=== PATIENT | male | born 1975 | race Caucasian/White ===

== ENCOUNTER → 2023-01-16 14:34 | Outpatient (BNVA) | payer MEDICARE, MEDICAID, SELFPAY | PROVIDERS: PCP Internal Medicine; Visit Provider Physician Assistant | DX: Z12.11 Encounter for screening for malignant neoplasm of colon (principal); K21.9 Gastro-esophageal reflux disease without esophagitis | CPT/HCPCS: 99202 ==

== ENCOUNTER 2023-05-21 08:24 | Day surgery (SDC) | payer MEDICARE, MEDICAID, SELFPAY ==
[2023-05-19 14:16] VITALS: BMI 27.9
--- NOTE | 2023-05-20 09:52 | HO.ANESPROP2 ---
Documented by User: Abbie Frankel NP 05/20/23 09:52 HPI - Anesthesia Eval Consult details Narrative: 47yo M for Upper Endoscopy and Colonoscopy PMFSH Active Problems Active Problems: All Active Problems (Updated 05/19/23 @ 14:17 by Belgica Souza RN) Dysautonomia (Acute) Encounter for screening colonoscopy (Acute) Acid reflux (Acute) Past Medical History Medical History GERD (gastroesophageal reflux disease) Family History Family History Father Lung cancer Mother Breast cancer Surgical History Surgical History Hx laparoscopic cholecystectomy Hx of vasectomy Hx of hernia repair Social History Social History Household Members: Spouse and Children Alcohol intake: current Alcohol intake frequency: holidays/special occasions only Patient Tobacco Use Status: Never used Tobacco Substance Use Type: Marijuana Meds Allergies Allergy/AdvReac Type Severity Reaction Status Date / Time No Known Allergies Allergy Unverified 01/16/23 14:39 Home Medications Medication Instructions Recorded Confirmed Last Taken Type duloxetine 60 mg capsule,delayed 120 mg PO DAILY 01/16/23 01/16/23 Unknown History release lorazepam 1 mg tablet 1 mg PO TID 01/16/23 01/16/23 Unknown History omeprazole 40 mg capsule,delayed 40 mg PO BID 01/16/23 01/16/23 05/21/23 06:30 History release ondansetron HCl 8 mg tablet 8 mg PO TID PRN nausea 01/16/23 01/16/23 Unknown History sildenafil 50 mg tablet 50 mg PO DAILY 01/16/23 01/16/23 Unknown History Exam Exam Date and Time: May 20, 2023 0952 Height,Weight and Vital Signs: Height 6 ft 3 in Weight 101.151 kg Assessment and Plan Assessment Anesthesia Assessment: Chart Reviewed Documented by User: Nakita To MD 05/21/23 10:24 [facility] Active Problems Active Problems: All Active Problems (Updated 05/19/23 @ 14:17 by Belgica Souza RN) Dysautonomia (Acute) Encounter for screening colonoscopy (Acute) Acid reflux (Acute) ANGELITO. Uses mouth device and pillow Past Medical History Medical History GERD (gastroesophageal reflux disease) Family History Family History Father Lung cancer Mother Breast cancer Family history of problems with anesthesia: No Surgical History Surgical History Hx laparoscopic cholecystectomy Hx of vasectomy Hx of hernia repair History of Problems with Anesthesia: No Social History Social History Household Members: Spouse and Children Alcohol intake: current Alcohol intake frequency: holidays/special occasions only Patient Tobacco Use Status: Never used Tobacco Substance Use Type: Marijuana Meds Allergies Allergy/AdvReac Type Severity Reaction Status Date / Time No Known Allergies Allergy Unverified 01/16/23 14:39 Home Medications Medication Instructions Recorded Confirmed Last Taken Type duloxetine 60 mg capsule,delayed 120 mg PO DAILY 01/16/23 01/16/23 Unknown History release lorazepam 1 mg tablet 1 mg PO TID 01/16/23 01/16/23 Unknown History omeprazole 40 mg capsule,delayed 40 mg PO BID 01/16/23 01/16/23 05/21/23 06:30 History release ondansetron HCl 8 mg tablet 8 mg PO TID PRN nausea 01/16/23 01/16/23 Unknown History sildenafil 50 mg tablet 50 mg PO DAILY 01/16/23 01/16/23 Unknown History Exam Height,Weight and Vital Signs: Height 6 ft 3 in Weight 101.151 kg Vital Signs Temp Pulse Resp BP Pulse Ox O2 Del Method 97.6 F 68 16 116/77 98 Room Air 05/21/23 09:01 05/21/23 09:01 05/21/23 09:01 05/21/23 09:01 05/21/23 09:01 05/21/23 09:01 Airway Mallampati Class: III TM Dist: >3cm Neck ROM: Full Loose/Missing/Broken Teeth: No (Denies broken, loose, missing teeth) Heart: RRR Lungs: CTAB Assessment and Plan Assessment Anesthesia Assessment: Anesthesia Plan Discussed Final Anesthetic Review Family History of Problems with Anesthesia: No History of Problems with Anesthesia: No NPO: Yes ASA Class: III Final Preanesthetic Review: No Changes in Pt Med Stat, Meds/Allgs Chart Reviewed, Consent Obtained/Reviewed and Anes Risks/Benef Reviewed Patient Risk: Intermediate Procedure Risk: Low Assessment/Block/Sedation in SS: Assess/Block/Sedation-SS Anesthetic Plan Anesthetic Plan: MAC: Disposition: Standard PACU
[2023-05-21 08:45] VITALS: BMI 26.5
[2023-05-21 09:01] VITALS: BP 116/77; PULSE 68; RESP 16; TEMP 36.4; O2SAT 98
[2023-05-21] MEDS: Lactated Ringers 1,000 ML 100 ML IVCONT (09:12)
--- NOTE | 2023-05-21 09:29 | MHC.SHP ---
Pre-Procedural Eval Section A Date of Service: 05/21/23 Section B Chief Complaint: reflux disease,screening Relevant Family History (Specify if Yes): No Relevant Social History: Other (specify) Present Medications: see Short Stay Collaborative assessment Medical History: Significant History (gerd, dysautonomia) History of Previous Operations: Relevant previous surgery/procedure and date(s) (Hx laparoscopic cholecystectomy Hx of hernia repair Hx of vasectomy) Allergies: Allergies Allergy/AdvReac Type Severity Reaction Status Date / Time No Known Allergies Allergy Unverified 01/16/23 14:39 Review of Systems Sugical H&P ROS: Negative: Constitution, Cardiovascular, Respiratory, Neurological, Psychiatric, Hem-Onc, Allergic/Immunologic, Gastrointestinal, Genitourinary, Musculoskeletal, Integumentary, Endocrine and Eyes/Ears/Nose/Throat Exam Surgical H&P Exam: Normal: HEENT, Normal: Heart, Normal: Lungs, Normal: Extremities, Normal: Abdomen, Normal: Skin and Normal: Neurological Plan Diagnosis/Plan: Unchanged I have reviewed the history and physical and performed a pertinent physical examination on my patient. No changes have occurred unless specified. Time Spent With Patient Time: Total time managing care of this patient today ____ minutes.
--- NOTE | 2023-05-21 09:31 | W.PM.OPN ---
Operative Note Operative Note Date of Service: 05/21/23 Narrative: Operative Information Procedure Description: EGD, Colonoscopy Indication: GERD, screening Anesthesia: MAC FLEXIBLE TRANSORAL UPPER GASTROINTESTINAL ENDOSCOPY AND COLONOSCOPY PROCEDURE NOTE UPPER ENDOSCOPY Consent: Indications for the procedure and potential complications of bleeding, perforation, reaction to medications and missed diagnosis were discussed with the patient and informed consent was obtained. Instrument: Olympus GIF H 190 J mid size upper endoscope Monitoring: Vital signs and clinical assessment, continuous EKG monitoring, Pulse oximetry, Carbon Dioxide monitoring and blood pressure monitoring were done throughout the procedure. Procedure: The patient was placed in the left lateral decubitis position and pre-procedure medications were administered and a bite block was placed. The endoscope was inserted into the mouth and advanced under direct vision to the third part of duodenum. A careful inspection was made as the upper endoscope was withdrawn including a retroflexed examination of the proximal stomach; Findings and interventions are described below. Findings: Larynx:normal Esophagus: GE junction at 40 cm, diaphragm hiatus at 40 cm, few short tongues of salmon pink tissue suspicious for barretts, bx taken, also from distal and proximal esophagus Stomach: Patchy erythema. Biopsies were obtained. Grade 2 flap valve on retroflexed examination of the cardia.Reduced gastric movement noted. Duodenum: Normal bulb and descending duodenum, bx taken Intervention: Biopsies as noted above COLONOSCOPY Instrument: Olympus variable stiffness pediatric scope 190L Colonoscopy Monitoring: Vital signs and clinical assessment, continuous EKG monitoring, Pulse oximetry, Carbon Dioxide monitoring and blood pressure monitoring were done throughout the procedure. Colon withdrawal time was 12 minutes. Procedure: The patient was placed in the left lateral decubitis position and pre-procedure medications were administered. After a digital rectal examination of the ano-rectum, the video colonoscope was inserted into the rectum and advanced through the colon to the cecum/TI. The colonoscope was slowly withdrawn in a retrograde panoramic fashion and the colon mucosa was carefully examined including a retroflexed view of the rectum. Findings and interventions are described below. Procedure Difficulty:easy Findings: Terminal Ileum-normal Cecum:normal Ascending Colon: normal Transverse Colon -normal Descending Colon:normal Sigmoid Colon: few small diverticula seen Rectum: Retroflexion with small internal hemorrhoids, grade I Reduced colonic motility noted Anorectum - normal Colon preparation: [place] Bowel Preparation Scale Right colon; 2 Transverse colon: 2 Left colon; 2 (0 = Unprepared colon segment with mucosa not seen due to solid stool that cannot be cleared. 1 = Portion of mucosa of the colon segment seen, but other areas of the colon segment not well seen due to staining, residual stool and/or opaque liquid. 2 = Minor amount of residual staining, small fragments of stool and/or opaque liquid, but mucosa of colon segment seen well. 3 = Entire mucosa of colon segment seen well with no residual staining, small fragments of stool or opaque liquid) Impression and Post Procedure Diagnosis: Endoscopy Findings: gastritis possible barretts possible gastroparesis Colonoscopy Findings: internal hemorrhoids midl diverticulosis Plan: Await Pathology results Repeat Colonoscopy in 10 years or earlier if clinically indicated High fiber diet leaflet avoid straining at stool, epsom salts and sitz bath, anusol supps or cream consider GES and sitz marker study if ongoing sx Above findings were reviewed with the patient and relevant handouts were provided if indicated.
[2023-05-21 10:16] VITALS: BP 104/71; PULSE 76; RESP 16; TEMP 36.9; O2SAT 94
[2023-05-21 10:31] VITALS: BP 123/82; PULSE 74; RESP 16; TEMP 36.3; O2SAT 98
== END 2023-05-21 11:03 | disposition home or self-care (01) ==
PROVIDERS: PCP Internal Medicine; Visit Provider Internal Medicine Gastroenterology
PROC: (CPT 43239; principal; 2023-05-21 10:00)
DX: Z12.11 Encounter for screening for malignant neoplasm of colon (principal); K57.30 Diverticulosis of large intestine without perforation or abscess without bleeding; K64.0 First degree hemorrhoids; K21.9 Gastro-esophageal reflux disease without esophagitis; G90.1 Familial dysautonomia [Riley-Day]; K29.50 Unspecified chronic gastritis without bleeding; K44.9 Diaphragmatic hernia without obstruction or gangrene; Z90.49 Acquired absence of other specified parts of digestive tract; Z98.52 Vasectomy status; Z79.899 Other long term (current) drug therapy
CPT/HCPCS: 43239; G0121; 88305; 88342

== ENCOUNTER → 2023-05-21 08:24 | Outpatient (BNV) | payer MEDICARE, MEDICAID, SELFPAY | PROVIDERS: PCP Internal Medicine; Visit Provider Internal Medicine Gastroenterology | DX: Z12.11 Encounter for screening for malignant neoplasm of colon (principal); K21.9 Gastro-esophageal reflux disease without esophagitis; K29.70 Gastritis, unspecified, without bleeding; K64.0 First degree hemorrhoids; K57.30 Diverticulosis of large intestine without perforation or abscess without bleeding | CPT/HCPCS: 43239; G0121 ==

== ENCOUNTER 2023-06-04 12:22 | Outpatient (AMB) | payer OTHER, SELFPAY ==
--- NOTE | 2023-06-04 12:26 | MHC.OFFVIS ---
Intake Vital Signs 06/04/23 12:27 Height 6 ft 3 in Weight 215 lb BMI 26.9 BP 112/63 Blood Pressure Location Lt brachial Position Sitting Pulse 74 Intake Visit Reasons: s/p egd/colon- Shen Intake Note: Patient follow up acid reflex, for EGD/Colonoscopy results. Patient denies any GI issues. [employer] Consultant Required: No Accompanied by: Self / Same As Patient Allergies No Known Allergies Allergy (Verified 06/04/23 12:25) Medication List - Last Reconciled 06/04/23 by Yoanna Sosa PA-C duloxetine 120 mg PO DAILY lorazepam 1 mg PO TID omeprazole 40 mg PO BID ondansetron HCl 8 mg PO TID PRN sildenafil 50 mg PO DAILY HPI HPI Comments History of Present Illness Details A 47 y/o after EGD/ index screen colon-he had presented with persistent acid reflux PPI for many years. He continues to have acid reflux he had been taking omeprazole 40 mg b.i.d. for years. He does have intermittent breakthrough Appetite good His bowels are not fluctuate between constipation diarrhea he does drink smoothies using fiber-not consist Reviewed procedure report, pathology and recommendation No nausea, vomiting, hematemesis, hematochezia fever chills is present [facility] Medical History (Updated 06/04/23 @ 13:53 by Yoanna Sosa PA-C) GERD (gastroesophageal reflux disease) Surgical History Hx of colonoscopy History of esophagogastroduodenoscopy (EGD) Hx laparoscopic cholecystectomy Hx of vasectomy Hx of hernia repair Family History Father Lung cancer Mother Breast cancer Social History Household Members: Spouse and Children Alcohol intake: current Alcohol intake frequency: holidays/special occasions only Patient Tobacco Use Status: Never used Tobacco Substance Use Type: Marijuana Review of Systems Const All systems reviewed & are unremarkable except as noted in HPI and below GI Denies abdominal pain, Reports constipation, Denies early satiety, Reports heartburn and Reports loose stools Physical Exam Vital Signs: Last Vital Signs Pulse 74 06/04/23 12:27 BP 112/63 06/04/23 12:27 BMI result Body Mass Index 26.9 Const General: cooperative, healthy appearing, comfortable and no acute distress Orientation/consciousness: patient oriented x3 Limitations: no limitations Neuro General: patient oriented x3 Psych Appearance: grossly normal and well kempt Mental Status: mental status grossly normal Speech and movement: Normal speech and movement present and Clear speech present Affect: normal affect Attitude: cooperative Thought process: Normal thought process present Thought content: Normal thought content present Insight: Good insight present (Psych) Judgement: Good judgement present (Psych) Results Reviewed Results Reviewed: Name: Joaquin Haynes Age/Sex: 47/M Attending: Jarett Shen MD : 1975 Submitted by: Jarett Shen MD Copies to: TEO SCHRADER MD MR #: [id number] Status: [facility] Collected: 05/21/23 Location: [facility] Received: 05/21/23 Diagnosis A. Duodenum, biopsy: Duodenal mucosa with preserved villi and no specific change. B. Stomach, biopsy: Predominantly gastric body mucosa with congestion and focal minimal chronic inactive inflammation; negative for H pylori, intestinal metaplasia and dysplasia. C. Gastroesophageal junction, biopsy: Squamous mucosa with hyperplasia and intraepithelial eosinophils (up to 23 per high-power field) compatible with reflux esophagitis, and columnar mucosa with mild chronic inflammation; negative for intestinal metaplasia and dysplasia. D. Esophagus, distal, biopsy: Squamous mucosa with mild hyperplasia, otherwise no specific change; no columnar mucosa present. E. Esophagus, proximal, biopsy: Squamous mucosa with no specific change; no columnar mucosa present. Clinical History Pre-Op Dx: Reflux disease, colon cancer screening Post-Op Dx: Gastritis, possible Morfin's esophagus, possible gastroparesis, mild diverticulosis, internal hemorrhoids, possible colonic dysmotility Microscopic Description Microscopic sections reviewed. Immunostain for H. pylori on B is negative with appropriate control. Material Received A. Duodenum bx's B. Stomach bx's C. GE junction bx's, r/o Morfin's esophagus D. Distal esophagus bx's E. Proximal esophagus bx's Gross Description Received in 5 parts. Part A: Received in formalin labeled ?duodenum bx's? are 3 glistening, semitranslucent, soft, page-pink irregular tissue fragments ranging from 0.2-0.3 cm in greatest dimension which are submitted in toto in a single cassette labeled A. Patient: Joaquin Haynes Age/Sex: 47/M MR#: [id number] Page 1 of 2 Endoscopy Findings: gastritis possible barretts possible gastroparesis Colonoscopy Findings: internal hemorrhoids midl diverticulosis Plan: Await Pathology results Repeat Colonoscopy in 10 years or earlier if clinically indicated High fiber diet leaflet avoid straining at stool, epsom salts and sitz bath, anusol supps or cream consider GES and sitz marker study if ongoing sx Assessment & Plan Assessment & Plan (1) Acid reflux: Comment: Switched to pantoprazole 40 mg daily Code(s): K21.9 - Gastro-esophageal reflux disease without esophagitis Plan: PPI consistent (2) Diverticulosis of colon: Code(s): K57.30 - Diverticulosis of large intestine without perforation or abscess without bleeding Plan: maintain high-fiber diet Medications: New pantoprazole 40 mg PO DAILY 30 days PRN 30 tabs 6RF acid reflux Patient Instructions: Very pleasant 47-year-old Gent persistent acid reflux follows up after recent EGD in screening colonoscopy. Reviewed procedure report, pathology and recommendations Repeat asymptomatic 10 year colon Maintain high-fiber diet, literature given pantoprazole ' 40 mg daily, reviewed reflux precautions He will call progress in about 2 weeks In encouraged to call with any concerns Coding Level of Care Code Est Pt Level 3 (71978) Diagnoses Acid reflux K21.9 Diverticulosis of colon K57.30 Time Spent (min) 30
[2023-06-04 12:27] VITALS: BP 112/63; PULSE 74; BMI 26.9
== END 2023-06-04 13:11 | disposition home or self-care (01) ==
PROVIDERS: PCP Internal Medicine; Visit Provider Physician Assistant
DX: K21.9 Gastro-esophageal reflux disease without esophagitis (principal); K57.30 Diverticulosis of large intestine without perforation or abscess without bleeding
CPT/HCPCS: 99213

== ENCOUNTER → 2023-06-04 12:22 | Outpatient (BNVA) | payer OTHER, SELFPAY | PROVIDERS: PCP Internal Medicine; Visit Provider Physician Assistant | DX: K21.9 Gastro-esophageal reflux disease without esophagitis (principal); K57.30 Diverticulosis of large intestine without perforation or abscess without bleeding | CPT/HCPCS: 99212 ==

== ENCOUNTER 2025-03-01 12:59 | Outpatient (AMB) | payer MEDICARE, MEDICAID, SELFPAY ==
--- NOTE | 2025-03-01 13:06 | MHC.OFFVIS ---
Vital Signs 03/01/25 13:07 Height 6 ft 3 in Intake Visit Reasons: 5M DYSAUTONMIA Allergies No Known Allergies Allergy (Verified 03/01/25 13:15) Medication List - Last Reconciled 03/01/25 by Anju Alonso CNP duloxetine 60 mg PO DAILY lorazepam 1 mg PO BEDTIME PRN meclizine mg PO omeprazole 40 mg PO BID ondansetron HCl 4 mg PO DAILY pantoprazole 40 mg PO DAILY PRN sildenafil (Viagra) 100 mg PO DAILY PRN tizanidine 4 mg PO Q8H PRN HPI Comments Details: He had 1 episode in last 3 months which occurred on 02/13/2025 during sleep. His noted that he was shaking all over for about 1 minute. He was incontinent of urine. No tongue bite. He was slightly confused and tired afterward for about a day. He thought this episode may have been triggered by dehydration. Symptoms are worse with heat. Having more episodes of dizziness, which he describes as room spinning, along with tunnel vision. These episodes are associated with sweating, nausea, dry heaving, and vomiting. He tried meclizine for about 1 week, but dizziness was worse and he stopped it. He has been drinking coconut water, using some Liquid IV, and Celtic salt. Working with holistic practitioner and following with cardiology. Had 4 or 5 episodes of passing out between 05/2024 - 10/2024, with the last episode on 11/10/2024. Episodes happened when in the bathroom, either when urinating or having bowel movement. Episodes of dizziness, which he describes as rooming spinning, can happen when bending down or turning too quickly, and are associated with sweating, nausea, dry heaving, vomiting, and occasional episodes of bowel incontinence. It can happen 2-7x/day and last 20 minutes or longer. Symptoms are worse with heat, including hot showers. Laying flat helps some. Uses Liquid IV and Celtic salt. Passed out 4-5x between 10/2023 and 12/2023. In 11/2023, he passed out while laying in bed watching TV. He felt okay aside from having some L elbow pain. His saw him convulsing for less than 1 minute. He was incontinent, had a blank stare, was confused, and felt very tired after. No tongue bite. Was seeing [facility] for L elbow pain. Had burning pain in L elbow and forearm. Nerve testing at [facility] was apparently normal. Dysautonomia symptoms are worse with heat. Increasing salt intake. In 09/2023, he was laying in bed and felt okay, aside from L elbow pain. His found him convulsing for about 1 minute and he was incontinent, no tongue bite. He was confused for 5-10 minutes after this. He denies alcohol use. In the past, a couple of time a week he gets light headed, faint, nauseous, and needs to lie flat. No full LOC. Takes naps and wakes up momentarily disoriented for 15 secs. 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 The last episode was on February 22, 2022 and the one before that was about 6 months earlier. He loses consciousness and may have some tonic extension or jerking body movements like a seizure particularly if his head is elevated. He has been worked up at [facility]. His MRI of the brain apparently shows a very small atrophied cerebellum and his lower limb somatosensory evoked potentials in 2018 were reported to be abnormal but no waveforms were available. He apparently has had nerve conduction studies and a skin biopsy the reports of which are not available at this time. He was diagnosed with dysautonomia with extreme hypotension and bradycardia. He sees it electrophysiologists who has opined that the pacemaker will not be very helpful. He also suffers from a lot of anxiety. He has had extensive genetic testing which has been unremarkable. For four years he had a loop recorder and at times his heart rate was down to 10. He gets lightheaded dizzy and now has learnt to immediately lie down to abort the syncope otherwise if he passes out he has a hypoxic seizure-type posturing and his eyes are open and he is postictal and exhausted after. Sometimes it is even had tonic-clonic activity. His EEGs have apparently been normal. [facility] Medical History (Updated 03/01/25 @ 13:24 by Anju Alonso CNP) Dizziness Acid reflux Anxiety Peripheral neuropathy Dysautonomia Cerebellar atrophy GERD (gastroesophageal reflux disease) Surgical History Hx of colonoscopy History of esophagogastroduodenoscopy (EGD) Hx laparoscopic cholecystectomy Hx of vasectomy Hx of hernia repair Family History Father Lung cancer Mother Breast cancer Social History Household Members: Spouse and Children Alcohol intake: current Alcohol intake frequency: holidays/special occasions only Patient Tobacco Use Status: Never used Tobacco Substance Use Type: Marijuana Review of Systems Const Denies chills, Denies daytime sleepiness, Reports difficulty sleeping, Denies fatigue, Denies fever(s), Denies frequent falls, Denies headache(s), Denies increased appetite, Denies poor appetite, Reports snoring, Denies weakness, Denies weight gain and Denies weight loss Eyes Denies loss of vision ENT Denies vertigo, Reports dizziness, Denies headache(s) and Denies neck pain Card Denies chest pain at rest, Denies chest pain with activity, Reports syncope, Denies leg edema, Denies palpitations, Denies dyspnea and Denies dyspnea on exertion Resp Denies cough, Denies dyspnea, Denies dyspnea on exertion and Reports snoring GI Denies abdominal pain, Denies constipation, Reports heartburn, Denies diarrhea and Reports nausea Denies urinary frequency, Denies urinary incontinence and Denies urinary urgency Musc Denies abnormal gait, Denies back pain, Denies myalgias, Reports arthralgias, Denies neck pain, Reports numbness, Denies stiffness and Reports tingling Neuro Denies abnormal gait, Denies vertigo, Reports dizziness, Reports syncope, Denies frequent falls, Denies headache(s), Denies lack of coordination, Denies loss of vision, Denies memory loss, Reports numbness, Denies Other visual disturbances, Denies restless legs, Denies seizure-like activity, Reports tingling, Denies paresthesias, Denies tremor(s) and Denies weakness Psych Reports anxiety, Reports depression, Denies memory loss, Denies visual hallucinations and Denies hallucinations Endo Denies fatigue and Denies palpitations Physical Exam Const Other: General Appearance:? normal, in no acute distress. Heart:? S1, S2 normal, no murmurs. Lungs:? clear anteriorly and posteriorly. Musculoskeletal:? normal. Extremities:? no edema. Psych:? alert, oriented, cognitive function intact, cooperative with exam. Neuro Other: Abnormal Neurological Findings:?Diminished ankle reflexes Mental Status: alert and oriented X 3. Normal attention, orientation, memory, and affect. Cranial Nerves: Pupils are equal, round, and reactive to light. External ocular muscles are intact. Visual ng are full, no ptosis. Face is symmetrical, no facial weakness or droop. Facial sensations are normal. Tongue protrudes in midline. Palate elevates symmetrically. Shoulder shrugging is normal Motor Examination: As above, otherwise normal muscle tone, bulk and strength. No atrophy or fasciculations. No drift of the extended upper extremities. DTR 2+. Plantars are flexor. Straight Leg Raisin degrees. Sensory Exam: Normal light touch, temperature, pinprick, vibration, and joint-position sensations. Rhomberg sign is absent. Coordination: No ataxia. No titubation. Mcsbsq-[id number], [id number]-[id number] test, and rapid alternating movements were normal. Gait Exam: Within normal limits. Cerebellar Signs: [id number] and [id number] is normal. No dysdiadochokinesia. Extrapyramidal System: No tremor, rigidity with normal facial expressions. No bradykinesia. No bradyphrenia. Normal arm swing and posture. No propulsion or retropulsion. Speech: Normal. No dysphasia or dysarthria. Results Reviewed Results Reviewed: 11/17/2023 EEG: WNL 03/16/2024 48hr EEG: WNL. Assessment & Plan Assessment & Plan (1) Dysautonomia: Comment: with extreme hypotension and bradycardia Code(s): G90.1 - Familial dysautonomia [Blaise-Day] Category: Medical Plan: Discussed option for another ambulatory EEG, previous 48hr EEG in 02/2024 without findings, declining at this time. Advised to stay hydrated, continue using Liquid IV and Celtic salt. (2) Cerebellar atrophy: Code(s): G31.9 - Degenerative disease of nervous system, unspecified Category: Medical Plan: . (3) Peripheral neuropathy: Code(s): G62.9 - Polyneuropathy, unspecified Category: Medical Qualifiers: Peripheral neuropathy type: polyneuropathy, unspecified Qualified Code(s): G62.9 - Polyneuropathy, unspecified Plan: . (4) Vertigo: Code(s): R42 - Dizziness and giddiness Category: Medical Plan: Meclizine did not help and medication was stopped. Plan . Coding Level of Care Code Est Pt Level 4 (91413) Diagnoses Dysautonomia G90.1 Cerebellar atrophy G31.9 Peripheral polyneuropathy G62.9 Peripheral neuropathy type: polyneuropathy, unspecified Vertigo R42
--- OUTSIDE RECORDS SUMMARY | 2025-03-01 13:40 | XMS_ITS | Clinical Summary ---
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 Role Phone Unavailable Primary Care Provider Unavailabl e Social History Tobacco Use Types Packs/Day Years Used Date Smoking Tobacco: Never Assessed Sex and Gender Information Value Date Recorded Sex Assigned at Male 06/24/2022 10:36 AM EDT Legal Sex Male 10:36 AM EDT Gender Identity Male 06/24/2022 10:36 AM EDT Sexual Orientation Straight 06/24/2022 10 :36 AM EDT Plan of Treatment Health Maintenance Due Date Last Done Comments CT Colonography 1977 Colonoscopy 1977 Colorectal Cancer Screening 1977 Depression Screening 1977 FIT DNA/Cologuard 1977 FIT 1977 FOBT 1977 Lipid Panel 1977 Sigmoidoscopy 1977 Disability Screening 1977 Alcohol/Substance Use Screening 1989 Tobacco Screening 1989 Family Planning (PISQ) 1992 DTaP/Tdap/Td Vaccines (1 - Tdap) 1996 Hepatitis B Vaccines (1 of 3 - 19+ 3-dose series) 1996 COVID-19 Vaccine ( - 2023-2 5 season) 2024 Influenza Vaccine (#1) 2025 Zoster Vaccines (1 of 2) 2027 RSV Patients and Pa tients Aged 60 years or older (1 - 1-dose 75+ series) 2052 HIB Vaccines Aged Out No longer eligi ble based on patient's age to complete this topic HPV Vaccines Aged Out No longer eligi ble based on patient's age to complete this topic Hepatitis A Vaccines Aged Out No long er eligible based on patient's age to complete this topic IPV Vaccines Aged Out No longer eligi ble based on patient's age to complete this topic Meningococcal B Vaccine Aged Out No l onger eligible based on patient's age to complete this topic Meningococcal Vaccine Aged Out No klarissa vito eligible based on patient's age to complete this topic Pneumococcal Vaccine: Pediat rics (0 to 5 Years) and At-Risk Patients (6 to 49) Years Aged Out No longer eligible b ased on patient's age to complete this topic RSV under 20 months Aged Out No longe r eligible based on patient's age to complete this topic Rotavirus Vaccines Aged Out No longer eligible based on patient's age to complete this topic
== END 2025-03-01 13:29 | disposition home or self-care (01) ==
LOC: HO.HSM 13:03
PROVIDERS: PCP Internal Medicine; Referring Provider Internal Medicine; Visit Provider Registered Nurse
DX: G90.1 Familial dysautonomia [Riley-Day] (principal); G31.9 Degenerative disease of nervous system, unspecified; G62.9 Polyneuropathy, unspecified; R42 Dizziness and giddiness
CPT/HCPCS: 99214

== ENCOUNTER → 2025-03-01 12:59 | Outpatient (BNVA) | payer MEDICARE, MEDICAID, SELFPAY | PROVIDERS: PCP Internal Medicine; Referring Provider Internal Medicine; Visit Provider Registered Nurse | DX: G90.1 Familial dysautonomia [Riley-Day] (principal); R42 Dizziness and giddiness; G31.9 Degenerative disease of nervous system, unspecified; G62.9 Polyneuropathy, unspecified | CPT/HCPCS: 99212 ==